=== PATIENT | female | born 1990 | race African-American/Black ===

== ENCOUNTER 2017-04-04 22:43 | Emergency (ER) | payer OTHER ==
[~2017-04-04] VITALS: Ht 167.6 cm; Wt 90.7 kg
[2017-04-04 22:49] VITALS: BP 123/77
[2017-04-04 23:14] LABS: ABSOLUTE BASOPHIL COUNT 0 /CUMM (0.0-0.2); ABSOLUTE EOSINOPHIL COUNT 0.1 /CUMM (0.0-0.7); ABSOLUTE GRANULOCYTE CT 3.8 /CUMM (1.4-6.5); ABSOLUTE LYMPH COUNT 0.7 /CUMM (1.2-3.4); ABSOLUTE MONOCYTE COUNT 0.4 /CUMM (0.10-0.60); BASOPHIL % 0.3 % (0.0-2.0); EOSINOPHIL % 1.3 % (0-5); GRANULOCYTE % 75.4 % (42.2-75.2); HEMATOCRIT 35.5 % (37-47); MEAN CORPUSCULAR HGB CONC 33.5 G/DL (33.0-37.0); MEAN CORPUSCULAR VOLUME 80.7 FL (81.0-99.0); MEAN PLATELET VOLUME 8.8 FL (7.4-10.4); PLATELET COUNT 157 /CUMM (130-400); RBC DISTRIBUTION WIDTH 13.7 % (11.5-14.5); RED BLOOD CELL CT 4.39 /CUMM (4.20-5.40); WHITE BLOOD CELL COUNT 5.1 /CUMM (4.8-10.8)
--- NOTE | 2017-04-04 23:27 | ED GI/GU/ABDOMINAL COMPLAINT ---
History of Present Illness General Chief Complaint: General Adult Stated Complaint: "22WKS , ABD PAIN, DIARRHEA" Source: patient Exam Limitations: no limitations Vital Signs & Intake/Output Vital Signs & Intake/Output Vital Signs Date Time Temp Pulse Resp B/P B/P Pulse O2 O2 Flow FiO2 Mean Ox Delivery Rate 04/04 2326 98 Room Air 04/04 2249 97.2 96 20 123/77 99 Room Air ED Intake and Output 04/05 0000 04/04 1200 Intake Total Output Total Balance Patient 200 lb Weight Weight Reported by Patient Measurement Method Allergies Coded Allergies: No Known Drug Allergies (NKDA 04/04/17) Reconcile Medications Ferrous Sulfate 325 MG (65 MG IRON) TABLET 1 TAB PO DAILY SUPPLEMENT ( Reported) Pnv With Ca,No.72/Iron/FA ( Plus Tablet) 27 MG IRON-1 MG TABLET 1 TAB PO DAILY (Reported) Triage Note: PT IS 22 WEEKS , EDC 08/06/17. . PT TO ED C/O UPPER ABDOMINAL PAIN, COMES AND GOES SINCE YESTERDAY "8 TIMES PER HOUR" PAIN WHEN LYING SUPINE, DENIES PAIN WHEN LYING ON SIDE. PAIN ALSO WORSE AFTER EATING OR DRINKING SOMETHING. C/O +N/V/D YESTERDAY. DENIES NAUSEA TODAY. DENIES UTI S/S. LAST BM WAS TODAY AND WAS NORMAL. CBC AWARE PATIENT IS IN ED Triage Nurses Notes Reviewed? yes LMP (ages 10-50): 22 weeks ? y Is pt currently ? No Onset: Abrupt Duration: day(s): (2), changing over time, gone now, intermittent Timing: multiple episodes today Quality/Severity: cramping Severity Numbers: 8 Location: epigastric Radiation: no radiation Activities at Onset: none Prior Abdominal Problems: none Sexually Active: Yes Last Time You Were Sexual: less than 2 months ago Use of Protection: No No Modifying Factors: none Associated Symptoms: abdominal pain HPI: 27-year-old female currently 22 weeks presents for evaluation of abdominal pain. Patient states that symptoms started yesterday and have been intermittent. Symptoms will come and go. She is unsure exactly what brings them on because up with that laying down flat and eating will bring on the pain. Is located in the epigastric area does not radiate. No vaginal discharge vaginal bleeding no chest pain shortness of breath or any other associated symptoms. She had early vaginal delivery at 32 weeks for her last so she goes to the high risk Center at [facility] and is seen every week. This has been uncomplicated so far. She's not taking any medicine for this. Currently symptoms are gone and she is asymptomatic. No nausea vomiting or diarrhea. He has been able to eat and drink. (Kyle Mccain) Past History Travel History Traveled to [facility] past 21 day No Medical History Any Pertinent Medical History? see below for history Blood Disorders: anemia Surgical History Surgical History: non-contributory Psychosocial History What is your primary language Armenian Tobacco Use: Never used ETOH Use: denies use Illicit Drug Use: denies illicit drug use Family History Hx Contributory? No (Kyle Mccain) Review of Systems Review of Systems Constitutional: Reports: no symptoms. EENTM: Reports: no symptoms. Respiratory: Reports: no symptoms. Cardiovascular: Reports: no symptoms. GI: Reports: see HPI, abdominal pain. Genitourinary: Reports: no symptoms. Musculoskeletal: Reports: no symptoms. Neurological/Psychological: Reports: no symptoms. Hematologic/Endocrine: Reports: no symptoms. Immunologic/Allergic: Reports: no symptoms. All Other Systems: Reviewed and Negative (Kyle Mccain) Physical Exam Physical Exam General Appearance: well developed/nourished, no apparent distress, alert, awake Head: atraumatic, normal appearance Eyes: Bilateral: normal appearance, PERRL, EOMI. Ears, Nose, Throat, Mouth: hearing grossly normal, moist mucous membrane, Tympanic normal Neck: normal inspection, supple, full range of motion Respiratory: normal breath sounds, no respiratory distress, lungs clear Cardiovascular: regular rate/rhythm, normal peripheral pulses Peripheral Pulses: 2+ radial (R), 2+ radial (L) Gastrointestinal: normal bowel sounds, soft, no organomegaly, tenderness (mild epigastric tenderness), no rebound or gaurding Back: normal inspection, normal range of motion, no vertebral tenderness, no cvat Extremities: normal range of motion Neurologic/Psych: no motor/sensory deficits, awake, alert, oriented x 3, normal gait Skin: intact, normal color, warm/dry Core Measures ACS in differential dx? No Sepsis Present: No Sepsis Focused Exam Completed? No (Kyle Mccain) Progress Differential Diagnosis: appendicitis, biliary colic, cholecystitis, gastritis, intrauterine , kidney stone, pancreatitis, peptic ulcer, PUD/GERD, UTI/ pyelo Plan of Care: Orders Procedure Date/time Status URINALYSIS 04/04 2247 Complete LIPASE 04/04 2247 Complete HEPATIC FUNCTION PANEL 04/04 2247 Complete CBC WITHOUT DIFFERENTIAL 04/04 2247 Complete BASIC METABOLIC PANEL 04/04 2247 Complete AMYLASE 04/04 2247 Complete Laboratory Tests 04/05/17 0015: Urine Color STRAW, Urine Clarity CLEAR, Urine pH 7.5, Ur Specific [place] 1.015, Urine Protein NEG, Urine Ketones NEG, Urine Nitrite NEG, Urine Bilirubin NEG, Urine Urobilinogen 0.2, Ur Leukocyte Esterase NEG, Ur Microscopic EXAM NOT REQUIRED, Urine Hemoglobin NEG, Urine Glucose NEG 04/04/17 2305: Anion Gap 9, Estimated GFR > 60, BUN/Creatinine Ratio 14.0, Glucose 86, Calcium 8.7, Total Bilirubin 0.3, Direct Bilirubin 0.1, AST 28, ALT 31, Alkaline Phosphatase 55, Total Protein 6.4, Albumin 3.4 L, Amylase 31, Lipase 87, CBC w Diff NO MAN DIFF REQ, RBC 4.39, MCV 80.7 L, MCH 27.0, RDW 13.7, MPV 8.8, Gran % 75.4 H, Lymphocytes % 14.7 L, Monocytes % 8.3, Eosinophils % 1.3, Basophils % 0.3, Absolute Granulocytes 3.8, Absolute Lymphocytes 0.7 L, Absolute Monocytes 0.4, Absolute Eosinophils 0.1, Absolute Basophils 0, PUBS MCHC 33.5 Patient seen and evaluated. She is nontoxic-appearing. Currently asymptomatic. Her abdomen is soft with mild epigastric tenderness. Labs unremarkable. Patient was medicated with Pepcid and was able to eat and drink here without any difficulty. No nausea vomiting or abdominal pain. No vaginal discharge. She has an appointment this coming Wednesday at the high risk clinic. Discussed with patient about return precautions in detail. avoid spicy foods alcohol caffeine and chocolate. Continue Pepcid or Zantac as needed. Patient is nontoxic-appearing and agrees the plan. Case discussed with Dr. aSge and he agrees. Initial ED EKG: none (Parag REYES,Kyle) Departure Departure Disposition: HOME OR SELF CARE Condition: Stable Clinical Impression Primary Impression: Abdominal pain in Qualifiers: Trimester: second trimester Qualified Codes: O26.892 - Other specified related conditions, second trimester; R10.9 - Unspecified abdominal pain Referrals: Patient Has No Primary Care Dr (PCP/Family) Additional Instructions: Rest and drink plenty of fluids. Avoid spicy foods and caffeine. Zantac or Pepcid as needed for pain. 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 Monitor symptoms return with any concerns. Departure Forms: Customer Survey General Discharge Information (Kyle Mccain) PA/SCREED OPERATOR Co-Sign Statement Statement: ED Attending supervision documentation- [x] I saw and evaluated the patient. I have also reviewed all the pertinent lab results and diagnostic results. I agree with the findings and the plan of care as documented in the PA's/SCREED OPERATOR's documentation. [] I have reviewed the ED Record and agree with the PA's/SCREED OPERATOR's documentation. [] Additions or exceptions (if any) to the PAs/SCREED OPERATOR's note and plan are summarized below: [] (Chu WHITE,Main Hubbard)
[2017-04-05] MEDS ORDERED: FERROUS SULFAT325 M3 PO (01:15)
[2017-04-05] MEDS ORDERED: PRENATAL PLUS1 EAC1 PO (01:15)
== END 2017-04-05 01:16 ==
LOC: ERH 22:43
PROVIDERS: Pediatrics
DX: O26.892 Other specified pregnancy related conditions, second trimester (principal); R10.13 Epigastric pain; Z3A.22 22 weeks gestation of pregnancy
CPT/HCPCS: 81003; 96374